=== PATIENT | female | born 1940 | race Caucasian/White ===

== ENCOUNTER 2023-06-01 05:31 | Day surgery (SDC) | payer MEDICARE, BC ==
[2023-05-25 14:34] LABS: BASOPHILS # (AUTO) 0.1 X10'3 (0-0.2); BASOPHILS % (AUTO) 0.9 % (0-1); EOSINOPHILS # (AUTO) 0.1 X10'3 (0-0.9); LYMPHOCYTES # (AUTO) 1.9 X10'3 (1.1-4.8); LYMPHOCYTES % (AUTO) 26.6 % (21-51); MEAN CORPUSCULAR HEMOGLOBIN 30.7 PG (27.0-31.0); MEAN CORPUSCULAR HGB CONC 32.4 g/dL (33.0-36.5); MEAN CORPUSCULAR VOLUME 94.8 FL (78-98); MEAN PLATELET VOLUME 7.6 FL (7.4-10.4); MONOCYTES # (AUTO) 0.8 X10'3 (0-0.9); MONOCYTES % (AUTO) 10.6 % (2-12); NEUTROPHILS # (AUTO) 4.3 X10'3 (1.8-7.7); NEUTROPHILS % (AUTO) 59.9 % (42-75); PRE OP HEMATOCRIT 37.5 % (35.0-45.0); PRE OP HEMOGLOBIN 12.2 g/dL (12.0-16.0); PRE OP PLATELET COUNT 342 X10'3 (140-440); PRE OP WHITE BLOOD COUNT 7.2 10'3 (4.8-10.8); RED BLOOD COUNT 3.96 X10'6 (4.20-5.60); RED CELL DISTRIBUTION WIDTH 14.5 % (11.5-14.5)
[2023-05-25 14:47] LABS: ALBUMIN 3.8 G/DL (3.4-5.0); ALKALINE PHOSPHATASE 96 IU/L (46-116); BLOOD UREA NITROGEN 29 MG/DL (7-18); BUN/CREATININE RATIO 17.1 (10.0-20.0); CALCIUM 9.2 MG/DL (8.5-10.1); CHLORIDE 106 MMOL/L (99-107); PRE OP ALT 20 U/L (30-65); PRE OP ANION GAP 9 (8-16); PRE OP AST 20 U/L (10-37); PRE OP BILIRUB, TOTAL 0.3 MG/DL (0.0-1.0); PRE OP GLUCOSE 86 MG/DL (70-104); PRE OP POTASSIUM 3.9 MMOL/L (3.4-5.1); PRE OP SODIUM 141 MMOL/L (135-145); TOTAL CARBON DIOXIDE 25.9 MMOL/L (24-32); TOTAL PROTEIN 7.5 G/DL (6.4-8.2); eGFR 29 ML/MIN
[~2023-06-01] VITALS: Ht 170.2 cm; Wt 87.5 kg
[2023-06-01] VITALS (8 sets, daily range): BP systolic 105–141; BP diastolic 61–75; PULSE 62–70; RESP 13–16; TEMP 97.5; O2SAT 91–99
[~2023-06-01 05:31] MED LIST: AMLO5TAB16 PO; CALC600T22 PO; CHOL200012 PO; CITA40TA30 PO; ESOM20CA38 PO; EYE PROMISE; EZET10TA48 PO; FLUT1AER INH; GABA300C PO; MULT-1085 PO; PREVAGEN; TRAZ-251 PO; VARE1TAB24 PO; famotidine 20mg tablet PO ONE; ringers solution, lacted 1,000 ML IV SCH
[2023-06-01] MEDS ORDERED: BUPIVAcaine/PF 2.5 mg/ml (0.25%) 30ml vial ONE (06:52)
[2023-06-01] MEDS ORDERED: BUPIVAcaine/PF 2.5 mg/ml (0.25%) 30ml vial IJ ONE (07:00)
[2023-06-01] MEDS ORDERED: fentaNYL/PF 50MCG/1 ML 2ML syringe ONE (07:16)
[2023-06-01] MEDS ORDERED: midazolam 1 mg/ML 2ml injection ONE (07:16)
[2023-06-01] MEDS ORDERED: ondansetron/PF 4mg/2ml inj ONE (07:17)
[2023-06-01] MEDS ORDERED: LIDOcaine 2% (20mg/ml) 5ml vial ONE (07:17)
[2023-06-01] MEDS ORDERED: dexamethasone sod phosphate 4mg/ml inj. ONE (07:17)
[2023-06-01] MEDS ORDERED: propofol inj 20 ML IV ONE (07:17)
[2023-06-01] MEDS ORDERED: ROPIVAcaine 0.5% (5mg/ml) 30ml vial ONE (07:17)
[2023-06-01] MEDS ORDERED: ondansetron/PF 4mg/2ml inj IV PRN (07:25)
[2023-06-01] MEDS ORDERED: morphine 2 MG/ML inj. syringe IV PRN (07:25)
[2023-06-01] MEDS ORDERED: enalaprilat dihydrate 2.5mg/2ml vial IV PRN (07:25)
[2023-06-01] MEDS ORDERED: ROPIVAcaine 0.2% (10 MG/5 ML) BOLUS INJECTION INTERSCALE PRN (07:25)
[2023-06-01] MEDS ORDERED: ROPIVAcaine 0.2%/PF PUMP/bolus 545 ML INTERSCALE SCH (07:25)
[2023-06-01] MEDS ORDERED: fentaNYL/PF 50MCG/1 ML 2ML syringe IV PRN ×2 (07:25)
[2023-06-01] MEDS ORDERED: hydrALAZINE 20mg/ml inj. IV PRN (07:25)
[2023-06-01] MEDS ORDERED: ringers solution, lacted 1,000 ML IV SCH (07:25)
[2023-06-01] MEDS ORDERED: morphine 4 MG/ML inj SYRINge IV PRN (07:25)
[2023-06-01] MEDS ORDERED: sevoflurane 250ml liquid IH ONE (07:32)
[2023-06-01] MEDS ORDERED: cefazolin 2gm/D5W 100mL 100 ML IV ONE (07:40)
[2023-06-01] MEDS ORDERED: ePHEDrine 50MG/ML INJ. ONE (08:01)
--- NOTE | 2023-06-01 08:45 | NUR ---
Received from OR via BED, accompanied by Anesthesiologist and report given by Anesthesiologist. PATIENT WAKING UP, NO S/S OF PAIN, V/S WNL, SCD ON, 20G TO RUE, drsg to LEFT shoulder-CDI with SLING
[2023-06-01] MEDS ORDERED: HYDROcodone/acetaminophen 10/325mg tab PO PRN (08:50)
--- NOTE | 2023-06-01 09:45 | NUR ---
PATIENT [id number], DENIES PAIN, V/S WNL, SCD ON, 20G TO RUE D/C, drsg to LEFT shoulder-CDI with SLING. I HAVE REVIEWED D/C INSTRUCTIONS WITH PATIENT and they have verbalized understanding patient d/c home with all belongings and family gave transport home.
== END 2023-06-01 09:45 | disposition home or self-care (01) ==
LOC: PAS 05:31
PROVIDERS: ATTEND Orthopaedic Surgery
DX: M75.42 Impingement syndrome of left shoulder (principal); M19.012 Primary osteoarthritis, left shoulder; M75.52 Bursitis of left shoulder; M25.712 Osteophyte, left shoulder; M65.812 Other synovitis and tenosynovitis, left shoulder; I12.9 Hypertensive chronic kidney disease with stage 1 through stage 4 chronic kidney disease, or unspecified chronic kidney disease; N18.4 Chronic kidney disease, stage 4 (severe); J44.9 Chronic obstructive pulmonary disease, unspecified; G47.30 Sleep apnea, unspecified; F17.210 Nicotine dependence, cigarettes, uncomplicated; E78.5 Hyperlipidemia, unspecified; M41.9 Scoliosis, unspecified; K21.9 Gastro-esophageal reflux disease without esophagitis; M54.30 Sciatica, unspecified side; F32.A Depression, unspecified; G89.18 Other acute postprocedural pain; Z95.0 Presence of cardiac pacemaker; Z86.73 Personal history of transient ischemic attack (TIA), and cerebral infarction without residual deficits; Z98.890 Other specified postprocedural states; Z90.49 Acquired absence of other specified parts of digestive tract; Z79.899 Other long term (current) drug therapy
CPT/HCPCS: 29823; 36415; 64416; 80053; 82948; 85025; J0690; J1100; J2250; J2405; J2704; J2795; J3010; J3490; J7120; Z7506; Z7508; Z7512; A4565; A4618; A6253; A6449; A7000